=== PATIENT | female | born 1995 | race Caucasian/White ===

== ENCOUNTER 2017-07-12 18:38 | Emergency (ER) | payer OTHER ==
[2017-07-12 21:32] VITALS: BP 118/66
== END 2017-07-12 21:32 | disposition home or self-care (01) ==
LOC: ED 18:38
DX: O9A.212 Injury, poisoning and certain other consequences of external causes complicating pregnancy, second trimester (principal); Z3A.17 17 weeks gestation of pregnancy
CPT/HCPCS: Q0092

== ENCOUNTER 2018-10-18 02:23 | Emergency (ER) | payer OTHER ==
[~2018-10-18] VITALS: Ht 167.6 cm; Wt 81.2 kg
[2018-10-18 02:29] VITALS: BP 151/58; Ht 167.6 cm; Wt 81.2 kg
== END 2018-10-18 03:00 | disposition left against medical advice (07) ==
LOC: ED 02:23
DX: M54.5 Low back pain (principal)

== ENCOUNTER 2020-10-02 18:00 | Emergency (ER) | payer OTHER ==
[~2020-10-02] VITALS: Ht 157.5 cm; Wt 83.5 kg
[2020-10-02 18:17] VITALS: Ht 157.5 cm; Wt 83.5 kg
[2020-10-02 18:54] LABS: AMPHETAMINE QUAL UR NONE DETECTED (See below); BASOPHIL % 0.6 % (0.2-1.3); PLATELET COUNT 242 x10^3mcL (179-408); RED CELL DISTRIBUTION WIDTH 14.2 % (12.3-17.7)
[2020-10-02 18:58] LABS: CALCIUM 8.8 mg/dL (8.5-10.1); CARBON DIOXIDE 30.3 mmol/L (21-32); CHLORIDE SERUM 104 mmol/L (98-107); CREATININE SERUM 0.7 mg/dL (0.6-1.0); GFR1 > 60 mL/min; GLUCOSE SERUM 103 mg/dL (74-106); POTASSIUM SERUM 4.1 mmol/L (3.5-5.1); SODIUM SERUM 141 mmol/L (136-145)
[2020-10-02 19:12] LABS: ALBUMIN 3.8 g/dL (3.4-5.0); ALKALINE PHOSPHATASE 88 U/L (46-116); ALT/SGPT 36 U/L (14-59); AST/SGOT 16 U/L (15-37); BILIRUBIN TOTAL 0.2 mg/dL (0.20-1.00); T4(THYROXINE) 9.1 ug/dL (4.7-13.3); TOTAL PROTEIN, SERUM 7.6 g/dL (6.4-8.2)
[2020-10-02 20:43] VITALS: BP 113/75
== END 2020-10-02 20:43 | disposition home or self-care (01) ==
LOC: ED 18:00
PROVIDERS: Emergency Medicine
DX: R55 Syncope and collapse (principal); R20.2 Paresthesia of skin; Z20.828 Contact with and (suspected) exposure to other viral communicable diseases
CPT/HCPCS: J7040